=== PATIENT | female | born 1965 | race Caucasian/White ===

== ENCOUNTER 2017-03-15 08:38 | Day surgery (SDC) | payer MEDICARE ==
--- NOTE | 2017-03-13 16:16 | HP ---
DATE OF SURGERY: 03/15/2017 HISTORY OF PRESENT ILLNESS: The patient is a 51 year-old with some problems with choking over the past month or so mainly solids upper esophageal area. Years ago she had endoscopy. She had some reflux otherwise negative according to the patient. No recent upper endoscopy. She has a history of some blood clots in the past. PAST MEDICAL HISTORY: Hypertension, depression, history of deep venous thrombosis as well as recent dysphagia. PAST SURGICAL HISTORY: Bilateral foot surgery in the past. She had cholecystectomy on the past. 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 MEDICATIONS: Potassium, Furosemide, Citalopram, Xarelto, Montelukast, amlodipine. ALLERGIES: NKDA. FAMILY HISTORY: Negative in regards to this problem. Heart disease, emphysema. SOCIAL HISTORY: No smoking or alcohol abuse. REVIEW OF SYSTEMS: Twelve systems reviewed per admission assessment. No chest pain or palpitations other systems negative or noncontributory as above and per preadmission questionnaire. PHYSICAL EXAMINATION: GENERAL: No acute distress. HEENT: Sclerae nonicteric. NECK: No JVD. CHEST: Equal excursion, nonlabored breathing. CVS: Regular rate and rhythm. ABDOMEN: Soft. No peritoneal signs. EXTREMITIES: No significant edema. NEURO: Alert, moving extremities symmetrically. No gross motor deficits noted. IMPRESSION: Dysphagia whether is a stricture, esophagitis or other etiology, I feel she would benefit from upper endoscopy possible dilatation. She had more symptoms in upper esophagus area. Will need to hold her anticoagulants preoperative otherwise will proceed with EGD possible biopsy possible dilatation as an outpatient. General risk of bleeding or infection, small risk of bowel injury or perforation possibly requiring open procedure, small risk of missed or nondiagnosis or incomplete exam possibly requiring barium swallow, other studies or procedures. She understands and agrees to the planned procedure and will proceed with outpatient EGD, possible dilatation as an outpatient.
[~2017-03-15 08:38] MED LIST: Lactated Ringers 1,000 ML IV SCH
[2017-03-15] MEDS ORDERED: DIPRIVAN 200 MG/20 ML IV ONE (08:39)
[2017-03-15] MEDS ORDERED: Ketamine HCl 50 MG/ML IV ONE (08:39)
[2017-03-15] MEDS ORDERED: Lactated Ringers 1,000 ML IV ONE (08:53)
[2017-03-15 11:16] VITALS: O2SAT 95
[2017-03-15 11:31] VITALS: BP 115/90; PULSE 65
--- NOTE | 2017-03-16 09:45 | OP ---
SURGERY DATE/TIME: 03/15/2017 1005 PREOPERATIVE DIAGNOSIS: History of dysphagia. POSTOPERATIVE DIAGNOSES: 1) Mild gastritis. 2) Small inflammatory nodule proximal stomach. 3) Proximal esophageal narrowing and spasm (symptomatic). PROCEDURES: 1) EGD with cold biopsy of the antrum to evaluate for Helicobacter pylori. 2) Cold biopsy of inflammatory proximal gastric nodule. 3) Esophageal balloon dilatation, proximal esophageal narrowing (size 20 balloon dilator). SURGEON: Dr. Lamberto Pryor. ANESTHESIA: MAC. ESTIMATED BLOOD LOSS: Minimal. INDICATIONS: As noted above. Risks and benefits explained in detail and not limited to and consent obtained. DESCRIPTION OF PROCEDURE AND FINDINGS: The patient is taken to the operating room. MAC anesthesia introduced. After official time out and no disagreement with planned procedure, bite block positioned. Video gastroscope passed down the narrow proximal esophagus. The scope was able to be passed through here but this was narrowed and this is where she is having her symptoms of dysphagia and choking. It was felt that this would benefit from dilatation at the end of the procedure. The scope was able to be passed down to the gastroesophageal junction noted to be about 39 cm. The Z-line was crisp. No signs of esophagitis or Whipple's. The scope was then passed through the patent pylorus to the junction of the second and third portion of the duodenum. On withdrawal of the scope duodenum and duodenal bulb grossly unremarkable. Back in the stomach she had some mild gastritis. Cold biopsy taken of antrum to evaluate for MAMTA-test for Helicobacter pylori. Good hemostasis noted. On retroflex there were no signs of any large hiatal hernia. There may have been some slight bulging at the hiatus but no large hiatal hernia. Scope pulled back. Gastroesophageal junction noted to be about 39 cm. Z-line was crisp. No signs of esophagitis. No signs of Whipple's. At this point as she has the proximal esophageal narrowing that was quite symptomatic and causing her choking problems, it was felt this warranted dilatation. The scope was then passed back down into the stomach, balloon and catheter carefully inserted under direct vision of the camera and then pulled back up to the proximal esophageal narrowed area. It is then gradually inflated to 18 initially for 30 to 40 seconds and size 19 for 45 seconds and the final stage size 20 balloon dilator for 2 minutes. The balloon was then released and drained. The scope was then much easily passed through this proximal esophagus where the narrowing had been. There are no signs of any full thickness issues or injury. The scope is then passed back down in the stomach where the proximal esophageal inflammatory nodule had been biopsied this did not appear to be neoplastic but just a small area of inflammation. Cold biopsy had been taken. Good hemostasis noted at this point. The scope is slowly and carefully withdrawn. Again the dilated proximal esophagus did not appear to have any signs of any full thickness issues or injury. The scope is withdrawn. The patient tolerated the procedure well. Findings discussed with the family out in the waiting area.
== END 2017-03-15 11:39 | disposition home or self-care (01) ==
LOC: SDC 08:38
PROVIDERS: ATTEND Surgery
PROC: 0DB68ZX Excision of Stomach, Via Natural or Artificial Opening Endoscopic, Diagnostic (ICD-10-PCS; principal; 2017-03-15)
PROC: 0DB78ZX Excision of Stomach, Pylorus, Via Natural or Artificial Opening Endoscopic, Diagnostic (ICD-10-PCS; 2017-03-15)
PROC: 0D718ZZ Dilation of Upper Esophagus, Via Natural or Artificial Opening Endoscopic (ICD-10-PCS; 2017-03-15)
DX: K29.70 Gastritis, unspecified, without bleeding (principal); K22.2 Esophageal obstruction; I10 Essential (primary) hypertension; Z86.718 Personal history of other venous thrombosis and embolism
CPT/HCPCS: 87081; 43239; 43249; C1726; 00740; 36415; 88305; J2704

== ENCOUNTER 2017-08-11 09:08 | Day surgery (SDC) | payer MEDICARE ==
[2012-01-10 01:05] VITALS: BP 133/67
[2017-08-11] MEDS ORDERED: Ketamine HCl 50 MG/ML IV ONE (09:09)
[2017-08-11] MEDS ORDERED: Xylocaine-Mpf 2% 5 Ml Vial IJ ONE (09:09)
[2017-08-11] MEDS ORDERED: Lactated Ringers 1,000 ML IV ONE (09:09)
[2017-08-11] MEDS ORDERED: DIPRIVAN 200 MG/20 ML IV ONE (09:09)
[2017-08-11] MEDS ORDERED: Marcaine 0.5% SDV 10 ML IJ ONE (09:09)
[2017-08-11 09:58] LABS: Hematocrit 42.2 % (35-47); Hemoglobin 13.5 gm/dl (12.0-16.0); Mean Cell Volume 82.4 fl (78-100); Mean Corpuscular Hemoglobin 26.4 pg (26-32); Mean Platelet Volume 8.6 fl (6-9.5); Platelet Count 177 K/mm3 (150-450); Red Blood Count 5.12 M/mm3 (4.1-5.4); Red Cell Distribution Width 15.3 % (11.5-14.0); White Blood Count 5.5 K/mm3 (4.0-10.5)
[2017-08-11 10:25] LABS: INR 1.02 (0.8-3.0)
[2017-08-11 10:27] LABS: PTT 35.1 SECONDS (25.3-37.0)
--- NOTE | 2017-08-11 11:13 | XRAY ---
45 seconds fluoroscopy time in surgery for left L4-5 MBB.
--- NOTE | 2017-08-11 11:17 | XRAY ---
Indication: Left L4-L5 MBB. Intraoperative fluoroscopy was provided for 45 seconds. 2 digital spot images submitted for interpretation demonstrates posterior spinal needle tips projecting over the left L4/L5 pedicles. Correlate with intraoperative findings/report.
--- NOTE | 2017-08-12 10:09 | OP ---
DATE OF PROCEDURE: 08/11/2017 1042 SURGEON: Lena Sandhu D.O. PREOPERATIVE DIAGNOSIS: Degenerative lumbar spine disease, spondylosis, low back pain. POSTOPERATIVE DIAGNOSIS: Degenerative lumbar spine disease, spondylosis, low back pain. PROCEDURE PERFORMED: Left L4-L3 medial branch block under fluoroscopic guidance. DESCRIPTION OF THE PROCEDURE: The patient was taken to the operating room and placed in the prone position on the table. Skin at the injection site was prepped and draped in sterile fashion. Under fluoroscopy, bony anatomy of the targeted injection site was visualized. Induction agent was given as per anesthesia while vital signs were monitored. Local anesthetic agent of 0.5 cc of 1% lidocaine preservative free was introduced to anesthetize the skin and the subcutaneous tissue through the injection site. Under fluoroscopic guidance, a #20 gauge standard spinal needle was advanced into the target medial branch through the oblique approach. The preservative free 0.5 cc of 1% lidocaine and 0.5 cc of 0.25% Marcaine were injected into each of the targeted medial branch nerve. After the needle was being removed, the skin was cleansed with alcohol and then a bandage was applied. No complications or adverse consequences were observed. The patient was returned to the holding area until stabilized before discharge to home. After the procedure the residual pain is 0 out of 10 and the patient was ambulating well. There was no muscle weakness after the procedure. The patient will be followed up within ten days after the injection for re-evaluation.
== END 2017-08-11 11:20 | disposition home or self-care (01) ==
LOC: SDC-PAIN 09:08
PROVIDERS: ATTEND Internal Medicine
DX: M46.96 Unspecified inflammatory spondylopathy, lumbar region (principal); M51.36 Other intervertebral disc degeneration, lumbar region; M51.06 Intervertebral disc disorders with myelopathy, lumbar region; M48.061 Spinal stenosis, lumbar region without neurogenic claudication
CPT/HCPCS: 36415; 64493; 64494; 72020; 76000; 85027; 85610; 85730; J2704

== ENCOUNTER 2017-09-22 07:32 | Day surgery (SDC) | payer MEDICARE ==
[2012-01-10 01:05] VITALS: BP 133/67
[2017-09-22] MEDS ORDERED: Marcaine 0.5% SDV 10 ML IJ ONE (07:33)
[2017-09-22] MEDS ORDERED: LIDOCAINE HCL 1% AMPUL 5 ML IJ ONE (07:33)
[2017-09-22] MEDS ORDERED: DIPRIVAN 200 MG/20 ML IV ONE (07:33)
[2017-09-22 08:35] LABS: Hematocrit 41.9 % (35-47); Hemoglobin 13.4 gm/dl (12.0-16.0); Mean Cell Volume 81.8 fl (78-100); Mean Corpuscular Hemoglobin 26.2 pg (26-32); Mean Platelet Volume 9.1 fl (6-9.5); Platelet Count 157 K/mm3 (150-450); Red Blood Count 5.12 M/mm3 (4.1-5.4); Red Cell Distribution Width 14.8 % (11.5-14.0); White Blood Count 5.4 K/mm3 (4.0-10.5)
[2017-09-22 08:47] LABS: INR 0.97 (0.8-3.0)
[2017-09-22 08:50] LABS: PTT 34.8 SECONDS (25.3-37.0)
[2017-09-22] MEDS ORDERED: Lactated Ringers 1,000 ML IV ONE (10:28)
--- NOTE | 2017-09-22 11:20 | XRAY ---
Indication: Left L4-L5 MBB. Intraoperative fluoroscopy was provided for 29 seconds. 2 digital spot images submitted for interpretation demonstrates posterior spinal needle tips projecting over the left L4 and L5 pedicles. Correlate with intraoperative findings/report.
--- NOTE | 2017-09-23 09:59 | OP ---
DATE OF PROCEDURE: 09/22/2017 0955 SURGEON: Lena Sandhu D.O. PREOPERATIVE DIAGNOSIS: Degenerative lumbar spine disease, spondylosis, low back pain. POSTOPERATIVE DIAGNOSIS: Degenerative lumbar spine disease, spondylosis, low back pain. PROCEDURE PERFORMED: Left L4-L3 medial branch block under fluoroscopic guidance. DESCRIPTION OF THE PROCEDURE: The patient was taken to the operating room and placed in the prone position on the table. Skin at the injection site was prepped and draped in sterile fashion. Under fluoroscopy, bony anatomy of the targeted injection site was visualized. Induction agent was given as per anesthesia while vital signs were monitored. Local anesthetic agent of 0.5 cc of 1% lidocaine preservative free was introduced to anesthetize the skin and the subcutaneous tissue through the injection site. Under fluoroscopic guidance, a #20 gauge standard spinal needle was advanced into the target medial branch through the oblique approach. The preservative free 0.5 cc of 1% lidocaine and 0.5 cc of 0.25% -0.5% Marcaine were injected into each of the targeted medial branch nerve. After the needle was being removed, the skin was cleansed with alcohol and then a bandage was applied. No complications or adverse consequences were observed. The patient was returned to the holding area until stabilized before discharge to home. Preoperative pain level is 10 out of 10 and postoperative pain level is 0 out of 10. The patient will be followed up within ten days after the injection for re-evaluation.
== END 2017-09-22 10:40 | disposition home or self-care (01) ==
LOC: SDC-PAIN 07:32
PROVIDERS: ATTEND Internal Medicine
DX: M46.96 Unspecified inflammatory spondylopathy, lumbar region (principal); M51.36 Other intervertebral disc degeneration, lumbar region; M47.816 Spondylosis without myelopathy or radiculopathy, lumbar region; M48.061 Spinal stenosis, lumbar region without neurogenic claudication; Z79.891 Long term (current) use of opiate analgesic
CPT/HCPCS: 64493; 64494; 72020; 77003; 85027; 85610; 85730; J2704

== ENCOUNTER 2017-10-20 07:44 | Day surgery (SDC) | payer MEDICARE ==
[2012-01-10 01:05] VITALS: BP 133/67
[2017-10-20] MEDS ORDERED: XYLOCAINE-MPF 1% 5ML SDV IJ ONE (07:45)
[2017-10-20] MEDS ORDERED: DIPRIVAN 200 MG/20 ML IV ONE (07:45)
[2017-10-20] MEDS ORDERED: Marcaine Mpf 0.5% Vial 30 Ml IJ ONE (07:45)
[2017-10-20 08:40] LABS: INR 1.01 (0.8-3.0)
[2017-10-20 08:42] LABS: PTT 33.8 SECONDS (25.3-37.0)
[2017-10-20 08:44] LABS: Mean Corpuscular Hemoglobin 26.4 pg (26-32); Mean Corpuscular Hgb Concent. 32.6 g/dl (32-36); Mean Platelet Volume 9.6 fl (6-9.5); Platelet Count 154 K/mm3 (150-450); Red Blood Count 5.31 M/mm3 (4.1-5.4); Red Cell Distribution Width 14.5 % (11.5-14.0); White Blood Count 5.2 K/mm3 (4.0-10.5)
[2017-10-20] MEDS ORDERED: Lactated Ringers 1,000 ML IV ONE (11:53)
--- NOTE | 2017-10-20 15:58 | XRAY ---
Exam: Single view spine from 10/20/2017. Comparison: Single view spine from 09/22/2017. Indication: Left L4-L5 RFA. Findings: 32 seconds of intraoperative fluoroscopy time was utilized. A marketing campaign analyst image is seen of the lower lumbar spine and upper pelvis with a needle marker placed along the left side of L5. Subsequently, 3 additional frontal films reveal a needle in place with the tip at the level of the left L4 pedicle and a second needle tip in the projection of the left L5 pedicle. Please correlate with intraoperative findings/report.
--- NOTE | 2017-10-21 08:05 | XRAY ---
32 seconds fluoroscopy time in surgery for left L4-5 RFA.
--- NOTE | 2017-10-21 08:33 | OP ---
AMENDED REPORT: DATE OF PROCEDURE: 10/20/2017 0853 SURGEON: Lena Sandhu D.O. PREOPERATIVE DIAGNOSIS: Degenerative lumbosacral spine disease, spondylosis, low back pain. POSTOPERATIVE DIAGNOSIS: Degenerative lumbosacral spine disease, spondylosis, low back pain. PROCEDURES PERFORMED: Left L4-L3 medial branch radiofrequency ablation under fluoroscopic guidance. The medication used for this procedure includes 1 cc preservative-free 0.5% Marcaine, 1 cc preservative-free. The local anesthetic agent used is 8 cc preservative-free 1% lidocaine. DESCRIPTION OF PROCEDURE: The patient was taken to the operating room and laid in the prone position on the table. The skin over the injection site was prepped and draped in sterile fashion. Under fluoroscopy bony anatomy of the target injection site was visualized. Induction agent was given as per anesthesia while vital signs were monitored. Local anesthetic agent was introduced to anesthetize the skin and the subcutaneous tissue through the injection site. Under fluoroscopic guidance a standard size spinal needle with cannula was advanced into the target medial branch nerve as per standard protocol. Before the radiofrequency ablation motor and sensory nerve testing was conducted as per protocol. Under the safety guidance which ensured no motor nerves being involved, L4-L3 radiofrequency ablation was conducted at 80 degrees Celsius for 90 seconds as per standard protocol. After the spinal needle with the cannula was removed the skin was cleansed with alcohol and then a bandage was applied. No complications or adverse occurrences were observed. The patient was returned to the holding area until stabilized before being discharged to home. Preoperative pain level is 10 out of 10 and the postoperative pain level is 0 out of 10. The patient will be followed up within 10 days after the procedure for re-evaluation.
== END 2017-10-20 09:45 | disposition home or self-care (01) ==
LOC: SDC-PAIN 07:44
PROVIDERS: ATTEND Internal Medicine
DX: M46.96 Unspecified inflammatory spondylopathy, lumbar region (principal); M51.36 Other intervertebral disc degeneration, lumbar region; M47.816 Spondylosis without myelopathy or radiculopathy, lumbar region; M48.061 Spinal stenosis, lumbar region without neurogenic claudication; Z79.891 Long term (current) use of opiate analgesic
CPT/HCPCS: 36415; 64635; 64636; 72020; 77003; 85027; 85610; 85730; J2704

== ENCOUNTER 2018-03-23 11:38 | Day surgery (SDC) | payer MEDICARE ==
[2012-01-10 01:05] VITALS: BP 133/67
[2018-03-23] MEDS ORDERED: Xylocaine-Mpf 2% 5 Ml Vial IJ ONE (11:39)
[2018-03-23] MEDS ORDERED: Depo-Medrol 40 MG/ML IM ONE (11:39)
[2018-03-23] MEDS ORDERED: DIPRIVAN 200 MG/20 ML IV ONE (11:39)
[2018-03-23] MEDS ORDERED: Lactated Ringers 1,000 ML IV ONE (13:06)
--- NOTE | 2018-03-23 14:36 | XRAY ---
18 seconds fluoroscopy time in surgery fro bilateral L3-S1 MBB.
--- NOTE | 2018-03-23 14:36 | XRAY ---
Indication: Bilateral L3-S1 MBB. Intraoperative fluoroscopy was provided for 18 seconds. 2 digital spot images submitted for interpretation demonstrates posterior spinal needle tips along the expected course of the left and right L3-S1 nerve roots. Correlate with intraoperative findings/report.
== END 2018-03-23 13:50 | disposition home or self-care (01) ==
LOC: SDC-PAIN 11:38
PROVIDERS: ATTEND Psychiatry & Neurology Pain Medicine
DX: M54.5 Low back pain (principal)
CPT/HCPCS: 64493; 64494; 64495; 72020; 77003; J1030; J2704

== ENCOUNTER 2018-06-22 10:32 | Day surgery (SDC) | payer MEDICARE ==
[2012-01-10 01:05] VITALS: BP 133/67
[2018-06-22] MEDS ORDERED: Marcaine 0.5% SDV 10 ML IJ ONE (10:33)
[2018-06-22] MEDS ORDERED: DIPRIVAN 200 MG/20 ML IV ONE (10:33)
[2018-06-22] MEDS ORDERED: Depo-Medrol 40 MG/ML IM ONE (10:33)
[2018-06-22] MEDS ORDERED: Lactated Ringers 1,000 ML IV ONE (15:00)
--- NOTE | 2018-06-22 16:03 | XRAY ---
Indication: Bilateral L3-S1 MBB. Intraoperative fluoroscopy was provided for 26 seconds. Single digital spot image submitted for interpretation demonstrates posterior spinal needle tips projecting over the expected course of the left and right L3-S1 nerve roots. Correlate with intraoperative findings/report.
--- NOTE | 2018-06-22 16:05 | XRAY ---
26 seconds fluoroscopy time in surgery for bilateral L3-S1 MBB.
== END 2018-06-22 15:05 | disposition home or self-care (01) ==
LOC: SDC-PAIN 10:32
PROVIDERS: ATTEND Psychiatry & Neurology Pain Medicine
DX: M47.816 Spondylosis without myelopathy or radiculopathy, lumbar region (principal); M54.16 Radiculopathy, lumbar region
CPT/HCPCS: 72020; 77002; G0260; 27096; J1030; J2704

== ENCOUNTER 2018-11-02 11:51 | Day surgery (SDC) | payer MEDICARE ==
[2012-01-10 01:05] VITALS: BP 133/67
[2018-11-02] MEDS ORDERED: Depo-Medrol 40 MG/ML IM ONE (11:52)
[2018-11-02] MEDS ORDERED: Xylocaine 1% Vial 30 ML PF IJ ONE (11:52)
[2018-11-02] MEDS ORDERED: DIPRIVAN 200 MG/20 ML IV ONE (11:52)
[2018-11-02] MEDS ORDERED: Marcaine 0.5% SDV 10 ML IJ ONE (11:52)
[2018-11-02] MEDS ORDERED: Ketamine HCl 50 MG/ML IV ONE (11:52)
--- NOTE | 2018-11-02 15:00 | XRAY ---
1 minute and 5 seconds fluoroscopy time in surgery for right L3-S1 RFA.
--- NOTE | 2018-11-02 15:11 | XRAY ---
Indication: Right L3-S1 RFA. Intraoperative fluoroscopy was provided for 1 minute 5 seconds. 2 digital spot images submitted for interpretation demonstrates posterior needle tips projecting over the expected course of the right L3-S1 nerve roots. Correlate with intraoperative findings/report.
[2018-11-02] MEDS ORDERED: Lactated Ringers 1,000 ML IV ONE (17:04)
== END 2018-11-02 15:00 | disposition home or self-care (01) ==
LOC: SDC-PAIN 11:51
PROVIDERS: ATTEND Psychiatry & Neurology Pain Medicine
DX: M47.816 Spondylosis without myelopathy or radiculopathy, lumbar region (principal); I10 Essential (primary) hypertension; J44.9 Chronic obstructive pulmonary disease, unspecified; Z86.711 Personal history of pulmonary embolism
CPT/HCPCS: 64493; 64494; 72020; 77002; 84703; J1030; J2001; J2704

== ENCOUNTER 2018-11-16 10:49 | Day surgery (SDC) | payer MEDICARE ==
[2012-01-10 01:05] VITALS: BP 133/67
[2018-11-16] MEDS ORDERED: Marcaine 0.5% SDV 10 ML IJ ONE (10:50)
[2018-11-16] MEDS ORDERED: Xylocaine 1% Vial 30 ML PF IJ ONE (10:50)
[2018-11-16] MEDS ORDERED: Depo-Medrol 40 MG/ML IM ONE (10:50)
[2018-11-16] MEDS ORDERED: DIPRIVAN 200 MG/20 ML IV ONE ×2 (12:25→12:46)
[2018-11-16] MEDS ORDERED: Ketamine HCl 50 MG/ML ONE ×2 (12:26→12:36)
--- NOTE | 2018-11-16 13:19 | XRAY ---
Indication: Left L3-S1 RFA. Intraoperative fluoroscopy was provided for 44 seconds. 4 digital spot image submitted for interpretation demonstrates posterior needle tips projecting over the expected course of the left L3-S1 nerve roots. Correlate with intraoperative findings/report.
--- NOTE | 2018-11-16 13:21 | XRAY ---
44 seconds fluoroscopy time in surgery for left L3-S1 RFA.
[2018-11-16] MEDS ORDERED: Lactated Ringers 1,000 ML IV ONE (13:28)
== END 2018-11-16 13:12 | disposition home or self-care (01) ==
LOC: SDC-PAIN 10:49
PROVIDERS: ATTEND Psychiatry & Neurology Pain Medicine
DX: M47.816 Spondylosis without myelopathy or radiculopathy, lumbar region (principal); J44.9 Chronic obstructive pulmonary disease, unspecified; I10 Essential (primary) hypertension; Z86.711 Personal history of pulmonary embolism; Z90.5 Acquired absence of kidney
CPT/HCPCS: 64635; 64636; 72100; 77002; 84703; J1030; J2001; J2704